=== PATIENT | female | born 1955 | race African-American/Black ===

== ENCOUNTER 2018-07-10 13:49 | Emergency (ER) | payer MEDICARE, MEDICAID ==
[~2018-07-10] VITALS: Ht 162.6 cm; Wt 86.8 kg
[2018-07-10 13:52] VITALS: BP 134/72; Ht 162.6 cm; Wt 86.8 kg
[2018-07-10] MEDS ORDERED: LISINOPRIL10 MG PO (13:53)
[2018-07-10] MEDS ORDERED: NORCO 10-325 TA1 TAB PO (13:53)
[2018-07-10 14:44] LABS: BASOPHILS 0.4 % (0-2); EOSINOPHILS 3.6 % (0-7); HEMOGLOBIN 11.6 g/dL (12-16); IMMATURE GRANULOCYTES 0.7 % (0-5); LYMPHOCYTES 19.5 % (15-50); MCH 25.8 pg (26.0-34.0); MCHC 30.5 g/dL (31.0-37.0); MCV 84.6 fL (80.0-100.0); MEAN PLATELET VOLUME 9.9 fL (7.4-10.4); MONOCYTES 8.7 % (2-11); NEUTROPHILS 67.1 % (40-80); PLATELET COUNT 218 10x3/uL (130-400); RBC 4.49 10x6/uL (4.00-5.40); RDW 17.3 % (11.5-14.5); WBC 7.1 10x3/uL (4.8-10.8)
[2018-07-10 15:01] LABS: ALBUMIN 3.6 g/dL (3.4-5.0); ANION GAP 12.6 mmol/L (8-16); BILIRUBIN - TOTAL 0.45 mg/dL (0.2-1.3); CALCIUM 8.4 mg/dL (8.5-10.1); CARBON DIOXIDE 26.6 mmol/L (21.0-32.0); CREATININE - SERUM 1.3 mg/dL (0.6-1.3); POTASSIUM - SERUM 5.2 mmol/L (3.5-5.1); PROTEIN - SERUM 7.3 g/dL (6.4-8.2)
[2018-07-10 16:00] LABS: APPEARANCE CLEAR (CLEAR); BILIRUBIN NEGATIVE (NEGATIVE); COLOR YELLOW (YELLOW); GLUCOSE NEGATIVE (NEGATIVE); KETONE NEGATIVE (NEGATIVE); NITRITE NEGATIVE (NEGATIVE); PROTEIN NEGATIVE (NEGATIVE); UROBILINOGEN NORMAL (NORMAL)
[2018-07-10 16:11] LABS: UDS - AMPHET NEGATIVE QUAL (NEGATIVE); UDS - BARB NEGATIVE QUAL (NEGATIVE); UDS - BENZO POSITIVE QUAL (NEGATIVE); UDS - COCAINE NEGATIVE QUAL (NEGATIVE); UDS - OPIATE POSITIVE QUAL (NEGATIVE); UDS - PCP NEGATIVE QUAL (NEGATIVE); UDS - THC POSITIVE QUAL (NEGATIVE)
== END 2018-07-10 18:30 | disposition home or self-care (01) ==
LOC: D.ER 13:49
PROVIDERS: Family Medicine
DX: G89.4 Chronic pain syndrome (principal); F19.10 Other psychoactive substance abuse, uncomplicated; V79.9XXA Bus occupant (driver) (passenger) injured in unspecified traffic accident, initial encounter; Y93.89 Activity, other specified; Y92.410 Unspecified street and highway as the place of occurrence of the external cause; I10 Essential (primary) hypertension; F17.200 Nicotine dependence, unspecified, uncomplicated

== ENCOUNTER 2018-07-18 05:42 | Observation (INO) | payer MEDICARE, MEDICAID ==
[2018-07-18] VITALS (7 sets, daily range): BP systolic 124–156; BP diastolic 70–96; BMI 32.8
[~2018-07-18] VITALS: Ht 162.6 cm; Wt 86.6 kg
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
--- NOTE | ~2018-07-18 | MORECARE ---
CASE MANAGEMENT DISCHARGE SUMMARY PATIENT: ANDREA GRIFFITHS BARBARA UNIT: [id number] ADM DATE: 07/18/18 AGE: 63 : 55 SEX: F ROOM/BED: D.2209 AUTHOR: YOLANDA CHENEY PHYSICIAN: REFERRING PHYSICIAN: NIMA REDDY MD DATE OF SERVICE: 07/19/18 Discharge Plan Patient Name: ANDREA GRIFFITHS Facility: [facility]:[place] : 1955 Planned Disposition: Home Health Service Anticipated Discharge Date: 07/20/18 Discharge Date: Expected LOS: 2 Initial Reviewer: [email or web address] Initial Review Date: 07/18/2018 Generated: 07/19/18 5:21 pm DCPIA - Discharge Planning Initial Assessment Updated by [id number]: Anu Borrego on 07/19/18 4:14 pm * Is the patient Alert and Oriented? Yes * How many steps to enter\exit or inside your home? NONE * PCP DR JONI JACOBSON * Pharmacy [facility] * Preadmission Environment Home Alone * ADLs Partial Dependent * Partial ADLs (Assistance needed) Bathing Toileting * Equipment Walker Wheelchair * Other Equipment DENIES ANY ADDITIONAL DME * List name and contact numbers for known caregivers / representatives who currently or will assist patient after discharge: VIVIANA VARELA [facility]- [phone] * Verbal permission to speak to the caregivers and representatives has been obtained from the patient. No * Community resources currently utilized Other * Please name any agencies selected above. HAD HEALTH AIDE FROM [facility] 2 HRS ON SAT/ SATURDAY / SATURDAY / SATURDAY * Additional services required to return to the preadmission environment? Yes * Can the patient safely return to the preadmission environment? Yes * Has this patient been hospitalized within the prior 30 days at any hospital? No Last DP export: 07/19/18 3:13 p Patient Name: ANDREA GRIFFITHS Page 75452 at 1621 All edits/amendments must be made on the electronic document DICTATION DATE: 07/19/18 162 BUSINESS DEVELOPMENT ANALYST: SONI 07/19/18 162 RPT#: [id number] DC DATE: STATUS: ADM IN [facility] [address] [place] [address] END OF REPORT
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
--- NOTE | ~2018-07-18 | MORECARE ---
CASE MANAGEMENT DISCHARGE SUMMARY PATIENT: ANDREA GRIFFITHS BARBARA UNIT: [id number] ADM DATE: 07/18/18 AGE: 63 : 55 SEX: F ROOM/BED: D.2209 AUTHOR: YOLANDA CHENEY PHYSICIAN: REFERRING PHYSICIAN: NIMA REDDY MD DATE OF SERVICE: 07/19/18 Discharge Plan Patient Name: ANDREA GRIFFITHS Facility: [facility]:[place] : 1955 Planned Disposition: Home Health Service Anticipated Discharge Date: 07/20/18 Discharge Date: Expected LOS: 2 Initial Reviewer: [email or web address] Initial Review Date: 07/18/2018 Generated: 07/19/18 5:13 pm Patient Name: ANDREA GRIFFITHS Page 55430 at 1614 All edits/amendments must be made on the electronic document DICTATION DATE: 07/19/18 1613 CLUB FORMER: SONI 07/19/18 161 RPT#: [id number] DC DATE: STATUS: ADM IN [facility] [address] [place] [address] END OF REPORT
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
[~2018-07-18 05:42] MED LIST: LISINOPRIL10 MG PO; NORCO 10-325 TA1 TAB PO
[2018-07-18] MEDS ORDERED: FOLIC ACID1 MG PO (05:49)
[2018-07-18] MEDS ORDERED: SYNTHROID100 MCG PO (05:49)
[2018-07-18] MEDS ORDERED: [UNRECOGNIZED DRUG - REMARK] (05:49)
[2018-07-18 06:59] LABS: BASOPHILS 0.2 % (0-2); EOSINOPHILS 0.1 % (0-7); HEMATOCRIT 39.9 % (36.0-48.0); HEMOGLOBIN 12.6 g/dL (12-16); LYMPHOCYTES 11.5 % (15-50); MCH 26.1 pg (26.0-34.0); MCHC 31.6 g/dL (31.0-37.0); MCV 82.8 fL (80.0-100.0); MEAN PLATELET VOLUME 9.9 fL (7.4-10.4); MONOCYTES 4.5 % (2-11); NEUTROPHILS 82.7 % (40-80); PLATELET COUNT 325 10x3/uL (130-400); RBC 4.82 10x6/uL (4.00-5.40); RDW 18.3 % (11.5-14.5); WBC 11.7 10x3/uL (4.8-10.8)
[2018-07-18 07:17] LABS: ALBUMIN 3.6 g/dL (3.4-5.0); ANION GAP 19.7 mmol/L (8-16); BILIRUBIN - TOTAL 0.47 mg/dL (0.2-1.3); CARBON DIOXIDE 19.1 mmol/L (21.0-32.0); CREATININE - SERUM 1.3 mg/dL (0.6-1.3); POTASSIUM - SERUM 4.8 mmol/L (3.5-5.1); PROTEIN - SERUM 7.2 g/dL (6.4-8.2)
[2018-07-18 07:43] LABS: APTT 21.4 SECONDS (22.8-39.4); INR 0.97 (0.85-1.17); PROTIME 12.4 SECONDS (11.6-15.0)
[2018-07-18 09:51] LABS: CKMB 0.3 U/L (0.0-3.6); CREATINE KINASE 31 UL (21-215)
[2018-07-18 09:58] LABS: TROPONIN-I < 0.017 ng/mL (0.000-0.060)
[2018-07-18 16:23] LABS: HEMATOCRIT 33.5 % (36.0-48.0); HEMOGLOBIN 10.7 g/dL (12-16)
[2018-07-18 23:40] LABS: HEMATOCRIT 32.4 % (36.0-48.0); HEMOGLOBIN 10.1 g/dL (12-16)
[2018-07-19] VITALS: BP 138/70
[2018-07-19 04:00] VITALS: BP 133/66
[2018-07-19 06:14] LABS: BASOPHILS 0.6 % (0-2); EOSINOPHILS 1.3 % (0-7); HEMATOCRIT 31.7 % (36.0-48.0); HEMOGLOBIN 9.7 g/dL (12-16); IMMATURE GRANULOCYTES 0.7 % (0-5); LYMPHOCYTES 17.7 % (15-50); MCH 25.5 pg (26.0-34.0); MCHC 30.6 g/dL (31.0-37.0); MCV 83.2 fL (80.0-100.0); MEAN PLATELET VOLUME 9.4 fL (7.4-10.4); NEUTROPHILS 70.7 % (40-80); RDW 18.2 % (11.5-14.5); WBC 13.9 10x3/uL (4.8-10.8)
[2018-07-19 06:16] LABS: PLATELET COUNT 246 10x3/uL (130-400); RBC 3.81 10x6/uL (4.00-5.40)
[2018-07-19 06:38] LABS: ALBUMIN 3.4 g/dL (3.4-5.0); ANION GAP 15.1 mmol/L (8-16); BILIRUBIN - TOTAL 0.38 mg/dL (0.2-1.3); CALCIUM 8.1 mg/dL (8.5-10.1); CARBON DIOXIDE 22.6 mmol/L (21.0-32.0); CREATININE - SERUM 1.2 mg/dL (0.6-1.3); PROTEIN - SERUM 6.9 g/dL (6.4-8.2)
[2018-07-19 06:45] LABS: POTASSIUM - SERUM 3.7 mmol/L (3.5-5.1)
[2018-07-19 08:51] VITALS: BP 154/70
[2018-07-19 09:42] VITALS: Ht 162.6 cm; Wt 86.6 kg
[2018-07-19] MEDS ORDERED: PROZAC40 MG PO (09:55)
[2018-07-19] MEDS ORDERED: OXYCODONE HCL5 M1 PO (10:07)
[2018-07-19 12:53] VITALS: BP 131/69
[2018-07-19 16:25] VITALS: BP 155/82
[2018-07-19 20:00] VITALS: BP 148/59
[2018-07-20] VITALS: BP 147/72
[2018-07-20 04:00] VITALS: BP 138/59
[2018-07-20 05:31] LABS: BASOPHILS 0.4 % (0-2); HEMATOCRIT 28.1 % (36.0-48.0); HEMOGLOBIN 8.7 g/dL (12-16); IMMATURE GRANULOCYTES 0.7 % (0-5); LYMPHOCYTES 14.3 % (15-50); MCH 25.8 pg (26.0-34.0); MCV 83.4 fL (80.0-100.0); MEAN PLATELET VOLUME 9.4 fL (7.4-10.4); MONOCYTES 12.2 % (2-11); NEUTROPHILS 70.4 % (40-80); PLATELET COUNT 219 10x3/uL (130-400); RBC 3.37 10x6/uL (4.00-5.40); RDW 18.2 % (11.5-14.5); WBC 11.4 10x3/uL (4.8-10.8)
[2018-07-20 09:31] VITALS: BP 140/68
[2018-07-20 12:37] VITALS: BP 146/70
[2018-07-20 17:28] VITALS: BP 113/50
[2018-07-20 20:00] VITALS: BP 110/69
[2018-07-21] VITALS: BP 144/77
[2018-07-21 04:00] VITALS: BP 144/67
[2018-07-21 04:35] LABS: BASOPHILS 0.3 % (0-2); EOSINOPHILS 2.3 % (0-7); HEMOGLOBIN 8.7 g/dL (12-16); IMMATURE GRANULOCYTES 0.7 % (0-5); LYMPHOCYTES 13.8 % (15-50); MCH 25.8 pg (26.0-34.0); MCHC 31.1 g/dL (31.0-37.0); MCV 83.1 fL (80.0-100.0); MEAN PLATELET VOLUME 9.4 fL (7.4-10.4); MONOCYTES 11.1 % (2-11); NEUTROPHILS 71.8 % (40-80); PLATELET COUNT 205 10x3/uL (130-400); RBC 3.37 10x6/uL (4.00-5.40); WBC 10.7 10x3/uL (4.8-10.8)
[2018-07-21] MEDS ORDERED: NORCO 10-325 TA1 TAB PO (08:05)
[2018-07-21 08:30] VITALS: BP 172/72
== END 2018-07-21 10:49 | disposition home health service (06) ==
LOC: D.ER 05:42 → D.EDHOLD 10:44 → D.MS 10:44 → OBSVTIME 10:44 → D.MS 13:05
PROVIDERS: Family Medicine; Surgery
DX: S36.039A Unspecified laceration of spleen, initial encounter (principal); W08.XXXA Fall from other furniture, initial encounter; M32.9 Systemic lupus erythematosus, unspecified; G89.4 Chronic pain syndrome; F17.210 Nicotine dependence, cigarettes, uncomplicated; M25.512 Pain in left shoulder

== ENCOUNTER 2018-07-24 17:53 | Emergency (ER) | payer MEDICARE, MEDICAID ==
[~2018-07-24] VITALS: Ht 162.6 cm; Wt 90.9 kg
[~2018-07-24 17:53] MED LIST changes: +FOLIC ACID1 MG PO; +OXYCODONE HCL5 M1 PO; +PROZAC40 MG PO; +SYNTHROID100 MCG PO; +[UNRECOGNIZED DRUG - REMARK]
[2018-07-24 17:56] VITALS: Ht 162.6 cm; Wt 90.9 kg
[2018-07-24 20:28] LABS: ALBUMIN 3.5 g/dL (3.4-5.0); ANION GAP 14.7 mmol/L (8-16); BASOPHILS 0.3 % (0-2); BILIRUBIN - TOTAL 0.87 mg/dL (0.2-1.3); CALCIUM 8.8 mg/dL (8.5-10.1); CARBON DIOXIDE 21.9 mmol/L (21.0-32.0); EOSINOPHILS 2.3 % (0-7); HEMATOCRIT 31.7 % (36.0-48.0); IMMATURE GRANULOCYTES 1.8 % (0-5); LYMPHOCYTES 20.4 % (15-50); MCH 26.4 pg (26.0-34.0); MCHC 31.5 g/dL (31.0-37.0); MCV 83.6 fL (80.0-100.0); MEAN PLATELET VOLUME 9.3 fL (7.4-10.4); MONOCYTES 10.9 % (2-11); NEUTROPHILS 64.3 % (40-80); POTASSIUM - SERUM 3.6 mmol/L (3.5-5.1); PROTEIN - SERUM 7.4 g/dL (6.4-8.2); RBC 3.79 10x6/uL (4.00-5.40); WBC 11.6 10x3/uL (4.8-10.8)
[2018-07-24 20:29] LABS: PLATELET COUNT 309 10x3/uL (130-400)
[2018-07-24 20:35] LABS: APPEARANCE CLEAR (CLEAR); COLOR YELLOW (YELLOW)
[2018-07-24 20:36] LABS: BILIRUBIN NEGATIVE (NEGATIVE); GLUCOSE NEGATIVE (NEGATIVE); KETONE NEGATIVE (NEGATIVE); NITRITE NEGATIVE (NEGATIVE); PROTEIN NEGATIVE (NEGATIVE); UROBILINOGEN NORMAL (NORMAL)
[2018-07-24] MEDS ORDERED: PERCOCET 5-3251 TAB PO (21:26)
[2018-07-24 21:36] VITALS: BP 107/72
== END 2018-07-24 21:36 | disposition home or self-care (01) ==
LOC: D.ER 17:53
PROVIDERS: Family Medicine
DX: S36.039D Unspecified laceration of spleen, subsequent encounter (principal); X58.XXXD Exposure to other specified factors, subsequent encounter; R10.9 Unspecified abdominal pain; D64.9 Anemia, unspecified; M32.9 Systemic lupus erythematosus, unspecified; K59.00 Constipation, unspecified

== ENCOUNTER 2018-09-29 11:04 | Emergency (ER) | payer MEDICARE, MEDICAID ==
[~2018-09-29] VITALS: Ht 162.6 cm; Wt 80.9 kg
[~2018-09-29 11:04] MED LIST changes: +PERCOCET 5-3251 TAB PO
[2018-09-29 11:07] VITALS: Ht 162.6 cm; Wt 80.9 kg
[2018-09-29 11:36] LABS: BASOPHILS 0.4 % (0-2); EOSINOPHILS 1.4 % (0-7); HEMATOCRIT 41.4 % (36.0-48.0); HEMOGLOBIN 13.5 g/dL (12-16); IMMATURE GRANULOCYTES 0.3 % (0-5); LYMPHOCYTES 19.4 % (15-50); MCH 26.7 pg (26.0-34.0); MCHC 32.6 g/dL (31.0-37.0); MCV 81.8 fL (80.0-100.0); MEAN PLATELET VOLUME 10.2 fL (7.4-10.4); MONOCYTES 7.9 % (2-11); NEUTROPHILS 70.6 % (40-80); PLATELET COUNT 270 10x3/uL (130-400); RBC 5.06 10x6/uL (4.00-5.40); RDW 15.5 % (11.5-14.5); WBC 9.1 10x3/uL (4.8-10.8)
[2018-09-29 11:53] LABS: ANION GAP 17.6 mmol/L (8-16); BILIRUBIN - TOTAL 0.47 mg/dL (0.2-1.3); CALCIUM 9.1 mg/dL (8.5-10.1); CARBON DIOXIDE 23.3 mmol/L (21.0-32.0); CREATININE - SERUM 1.1 mg/dL (0.6-1.3); POTASSIUM - SERUM 3.9 mmol/L (3.5-5.1)
[2018-09-29 12:02] LABS: APTT 26.6 SECONDS (22.8-39.4); PROTIME 12.7 SECONDS (11.6-15.0)
[2018-09-29 12:42] LABS: APPEARANCE HAZY (CLEAR); BILIRUBIN NEGATIVE (NEGATIVE); COLOR YELLOW (YELLOW); GLUCOSE NEGATIVE (NEGATIVE); KETONE NEGATIVE (NEGATIVE); NITRITE NEGATIVE (NEGATIVE); PROTEIN NEGATIVE (NEGATIVE); UROBILINOGEN NORMAL (NORMAL)
[2018-09-29] MEDS ORDERED: CARAFATE1 G PO (13:53)
[2018-09-29 14:20] VITALS: BP 130/76
== END 2018-09-29 14:21 | disposition home or self-care (01) ==
LOC: D.ER 11:04
PROVIDERS: Family Medicine
DX: R10.11 Right upper quadrant pain (principal); K29.70 Gastritis, unspecified, without bleeding

== ENCOUNTER 2019-01-12 09:18 | Emergency (ER) | payer MEDICARE, MEDICAID ==
[~2019-01-12] VITALS: Ht 162.6 cm; Wt 68.2 kg
[~2019-01-12 09:18] MED LIST changes: +CARAFATE1 G PO
[2019-01-12 09:41] VITALS: Ht 162.6 cm; Wt 68.2 kg
[2019-01-12 12:38] LABS: BASOPHILS 0.3 % (0-2); EOSINOPHILS 0.3 % (0-7); HEMATOCRIT 37.4 % (36.0-48.0); HEMOGLOBIN 11.7 g/dL (12-16); IMMATURE GRANULOCYTES 0.8 % (0-5); LYMPHOCYTES 8.3 % (15-50); MCH 25.8 pg (26.0-34.0); MCHC 31.3 g/dL (31.0-37.0); MCV 82.6 fL (80.0-100.0); MEAN PLATELET VOLUME 9.4 fL (7.4-10.4); NEUTROPHILS 83.3 % (40-80); PLATELET COUNT 239 10x3/uL (130-400); RBC 4.53 10x6/uL (4.00-5.40); RDW 16.6 % (11.5-14.5); WBC 15.3 10x3/uL (4.8-10.8)
[2019-01-12 12:52] LABS: BILIRUBIN - TOTAL 0.73 mg/dL (0.2-1.3); CALCIUM 9.2 mg/dL (8.5-10.1); CREATININE - SERUM 2.5 mg/dL (0.6-1.3); PROTEIN - SERUM 7.5 g/dL (6.4-8.2)
[2019-01-12 16:06] VITALS: BP 156/65
== END 2019-01-12 16:07 | disposition home or self-care (01) ==
LOC: D.ER 09:18
PROVIDERS: Family Medicine
DX: E86.0 Dehydration (principal); R41.82 Altered mental status, unspecified; M25.552 Pain in left hip; R07.81 Pleurodynia; W18.30XA Fall on same level, unspecified, initial encounter; Y93.89 Activity, other specified; Y92.019 Unspecified place in single-family (private) house as the place of occurrence of the external cause

== ENCOUNTER 2019-01-14 02:25 | Emergency (ER) | payer MEDICARE, MEDICAID ==
[~2019-01-14] VITALS: Ht 162.6 cm; Wt 80.0 kg
[2019-01-14 02:30] VITALS: BP 120/57; Ht 162.6 cm; Wt 80.0 kg
== END 2019-01-14 04:17 | disposition home or self-care (01) ==
LOC: D.ER 02:25
DX: F43.10 Post-traumatic stress disorder, unspecified (principal); X58.XXXA Exposure to other specified factors, initial encounter; Y93.89 Activity, other specified; Y92.019 Unspecified place in single-family (private) house as the place of occurrence of the external cause; F31.9 Bipolar disorder, unspecified

== ENCOUNTER 2019-01-19 13:53 | Emergency (ER) | payer MEDICARE, MEDICAID ==
[~2019-01-19] VITALS: Ht 162.6 cm; Wt 80.0 kg
[2019-01-19 14:02] VITALS: BP 104/61; Ht 162.6 cm; Wt 80.0 kg
[2019-01-19] MEDS ORDERED: PRINIVIL10 MG PO (14:08)
[2019-01-19] MEDS ORDERED: LEVOXYL150 MCG PO (14:09)
[2019-01-19] MEDS ORDERED: PROZAC40 MG PO (14:09)
[2019-01-19 14:27] LABS: BASOPHILS 0.4 % (0-2); HEMATOCRIT 33.2 % (36.0-48.0); HEMOGLOBIN 10.4 g/dL (12-16); IMMATURE GRANULOCYTES 0.3 % (0-5); LYMPHOCYTES 19.5 % (15-50); MCH 25.8 pg (26.0-34.0); MCHC 31.3 g/dL (31.0-37.0); MCV 82.4 fL (80.0-100.0); MEAN PLATELET VOLUME 9.1 fL (7.4-10.4); MONOCYTES 7.1 % (2-11); NEUTROPHILS 69.7 % (40-80); PLATELET COUNT 237 10x3/uL (130-400); RBC 4.03 10x6/uL (4.00-5.40); WBC 9.2 10x3/uL (4.8-10.8)
[2019-01-19 14:45] LABS: ANION GAP 15.1 mmol/L (8-16); CALCIUM 8.5 mg/dL (8.5-10.1); CREATININE - SERUM 1.8 mg/dL (0.6-1.3); POTASSIUM - SERUM 4.1 mmol/L (3.5-5.1)
== END 2019-01-19 16:55 | disposition left against medical advice (07) ==
LOC: D.ER 13:53
PROVIDERS: Emergency Medicine
DX: R19.7 Diarrhea, unspecified (principal)

== ENCOUNTER 2019-01-26 19:04 | Emergency (ER) | payer MEDICARE, MEDICAID ==
[~2019-01-26 19:04] MED LIST changes: +LEVOXYL150 MCG PO; +PRINIVIL10 MG PO
[2019-01-26 19:33] VITALS: BMI 29.6
[2019-01-26] MEDS ORDERED: BUTALB-APAP-CA1 EACH PO (22:43)
[2019-01-26 23:05] VITALS: BP 100/42
[2019-05-13] MEDS ORDERED: SPIRIVA RESPIMAT (15:11)
[2019-05-13] MEDS ORDERED: FLOVENT HFA 11012 GM INH (15:11)
[2019-05-13] MEDS ORDERED: OMEPRAZOLE40 MG PO (15:12)
[2019-05-13] MEDS ORDERED: ZANAFLEX4 MG PO (15:12)
[2019-05-13] MEDS ORDERED: VALIUM5 MG PO (15:13)
[2019-05-13] MEDS ORDERED: ATIVAN2 MG PO (15:14)
== END 2019-01-26 23:05 | disposition home or self-care (01) ==
LOC: D.ER 19:04
DX: R51 Headache (principal)

== ENCOUNTER 2019-05-14 10:26 | Day surgery (SDC) | payer MEDICARE, MEDICAID ==
[~2019-05-14] VITALS: Ht 157.5 cm; Wt 81.6 kg
[~2019-05-14 10:26] MED LIST changes: +ATIVAN2 MG PO; +BUTALB-APAP-CA1 EACH PO; +FLOVENT HFA 11012 GM INH; +OMEPRAZOLE40 MG PO; +SPIRIVA RESPIMAT; +VALIUM5 MG PO; +ZANAFLEX4 MG PO
[2019-05-14] MEDS ORDERED: HYDROCODON-ACE1 EA10 PO (12:09)
[2019-05-14 12:21] VITALS: BP 135/82; Ht 157.5 cm; Wt 81.6 kg
--- NOTE | 2019-05-18 14:32 | OP ---
PATIENT NAME: ANDREA GRIFFITHS MEDICAL RECORD: [id number] :55 LOCATION:D.OPS ADMISSION DATE: SURGEON: JOSE ESCOBAR DATE OF OPERATION: 05/14/2019 SURGEON: Jose Escobar DPM PREOPERATIVE DIAGNOSIS: Soft tissue mass, right foot. POSTOPERATIVE DIAGNOSIS: Soft tissue mass, right foot. PROCEDURE: Excision of soft tissue mass, right foot. ANESTHESIA: Local with monitored anesthesia care. HEMOSTASIS: Pneumatic calf tourniquet inflated to 250 mmHg. ESTIMATED BLOOD LOSS: Minimal. MATERIALS: 3-0 Vicryl, 4-0 nylon. INJECTABLES: A 20 cc of 0.5% bupivacaine plain. The patient has longstanding history of pain associated with the mass on the plantar surface of the right foot. An MRI was obtained, which showed the mass to be approximately 1 cm in diameter. She has tried padding and appropriate shoes to try to offload the area with no success. She is here today for excision of the mass. DESCRIPTION OF PROCEDURE: The patient was brought in the operating room and placed on the operating table in supine position. A timeout was called with Dr. Escobar, who identified the, surgical site, and surgery to be performed. Once appropriate anesthesia was obtained, the foot was prepped and draped in the usual aseptic manner. Pneumatic ankle tourniquet was inflated to 250 mmHg on the well-padded right ankle. Attention was directed to the lateral aspect of the right foot where a 5-cm linear incision was made over the base of the fifth metatarsal. This incision was carried deep to soft tissue with care being taken to retract all vital neurovascular structures. All bleeders were cauterized along the way. The subQ and fascia were dissected and a mass approximately 1.5 cm in diameter was noted within the subQ fat. The mass was then dissected free of all soft tissue attachments and passed from the field. It will be sent to pathology for further analysis. The surgical site was then investigated for any remaining pathological tissue and none was noted. The surgical site was then irrigated with copious amounts of normal sterile saline via bulb syringe. The subQ and deep structures were reapproximated and coapted using 3-0 Vicryl. The skin was then reapproximated and coapted using 4-0 nylon. A dressing consisting of Xeroform, 4 x 4's, Kerlix, and Naldo bandage was applied to the involved foot. Pneumatic calf tourniquet was deflated and cap refill time was immediate to all digits of the involved foot. OPERATIVE REPORT [id number] ANDREA GRIFFITHS The patient was discharged home with instructions to ice and elevate the foot. She was provided with prescriptions for Percocet 5/325 and she also has my cell phone number for any afterhours difficulties. There were no complications with this procedure. We will follow up with her in 1 week. TRANSINT:[id number] Voice Confirmation ID: [id number] DOCUMENT ID: [id number] JOSE ESCOBAR at 1432 CC: [id number] DICTATION DATE: 05/14/19 1519 SHIPPING RECEIVING CLERK: 05/14/192202 [facility] 05/14/[address] [id number]
== END 2019-05-14 17:00 | disposition home or self-care (01) ==
LOC: D.OPS 10:26 → D.PAN 13:00 → D.OPS 13:00
PROVIDERS: ATTEND Podiatrist
DX: R22.41 Localized swelling, mass and lump, right lower limb (principal)

== ENCOUNTER → 2019-07-07 09:21 | Outpatient (CLI) | payer MEDICARE, MEDICAID ==
[2019-05-14 12:21] VITALS: BMI 33.7
[~2019-07-07 09:21] MED LIST changes: +HYDROCODON-ACE1 EA10 PO
== END | disposition home or self-care (01) ==
LOC: D.CT 09:21
PROVIDERS: ATTEND Family Medicine
DX: R10.9 Unspecified abdominal pain (principal)

== ENCOUNTER 2020-04-13 11:03 | Emergency (ER) | payer MEDICARE, MEDICAID ==
[~2020-04-13] VITALS: Ht 157.5 cm; Wt 86.4 kg
[2020-04-13 11:04] VITALS: Ht 157.5 cm; Wt 86.4 kg
[2020-04-13 11:55] LABS: BASOPHILS 0.3 % (0-2); EOSINOPHILS 2.7 % (0-7); HEMATOCRIT 46.1 % (36.0-48.0); HEMOGLOBIN 14.9 g/dL (12-16); IMMATURE GRANULOCYTES 1.4 % (0-5); MCH 29.6 pg (26.0-34.0); MCHC 32.3 g/dL (31.0-37.0); MCV 91.5 fL (80.0-100.0); MEAN PLATELET VOLUME 9.2 fL (7.4-10.4); NEUTROPHILS 78.6 % (40-80); PLATELET COUNT 220 10x3/uL (130-400); RBC 5.04 10x6/uL (4.00-5.40); RDW 13.8 % (11.5-14.5); WBC 11.5 10x3/uL (4.8-10.8)
[2020-04-13 12:07] LABS: CALC OSMOLALITY 269 mosm/kg (275-300); CALCIUM 9.2 mg/dL (8.5-10.1); CARBON DIOXIDE 25.1 mmol/L (21.0-32.0); CHLORIDE - SERUM 100 mmol/L (98-107); GLUCOSE 97 mg/dL (74-106); POTASSIUM - SERUM 3.3 mmol/L (3.5-5.1); SODIUM 135 mmol/L (136-145); UREA NITROGEN 13 mg/dL (7-18); eGFR NON AFRICAN AMERICAN 59 mL/min (90-120)
[2020-04-13 12:16] LABS: ALBUMIN 4.1 g/dL (3.4-5.0); ALKALINE PHOSPHATASE 69 U/L (30-120); ALT (SGPT) 22 U/L (10-68); AMYLASE - SERUM 36 U/L (25-115); BILIRUBIN - TOTAL 0.84 mg/dL (0.2-1.3); LIPASE 56 U/L (73-393); PROTEIN - SERUM 8.2 g/dL (6.4-8.2); TROPONIN-I < 0.017 ng/mL (0.000-0.060)
[2020-04-13 14:51] LABS: BILIRUBIN NEGATIVE (NEGATIVE); KETONE SMALL mg/dL (NEGATIVE); NITRITE NEGATIVE (NEGATIVE); UROBILINOGEN NORMAL (NORMAL)
[2020-04-13 14:54] LABS: BACTERIA FEW /hpf (NEGATIVE); EPITHELIAL CELLS OCC /hpf (0-5); RED CELLS - URINE 0-5 /hpf (0-5); WHITE CELLS - URINE OCC /hpf (NEGATIVE)
[2020-04-13 16:13] VITALS: BP 13/74
== END 2020-04-13 16:15 | disposition home or self-care (01) ==
LOC: D.ER 11:03
DX: R10.9 Unspecified abdominal pain (principal); I10 Essential (primary) hypertension; E07.9 Disorder of thyroid, unspecified; J44.9 Chronic obstructive pulmonary disease, unspecified; K21.9 Gastro-esophageal reflux disease without esophagitis; Z72.0 Tobacco use